=== PATIENT | female | born 1965 | race Caucasian/White ===

== ENCOUNTER 2016-08-01 02:21 | Emergency (ER) | payer BC ==
--- NOTE | ~2016-08-01 | ER ---
PATIENT'S NAME: MATILDA MCGRAW [facility] AGE: 50 Y [address] ROOM: [place] [address] LOCATION: ED ADMIT DATE: 08/01/2016 ER/Outpatient Report DISCHARGE DATE: 08/01/2016 FAMILY PHYSICIAN: German Edmonds MD ATTENDING PHYSICIAN: Doreen Carter ADDENDUM: I saw Ms. Mcgraw in conjunction with Dr. Carter. I received the hand off at 0600 hours. The patient was evidently in SVT and was cardioverted. She had up trending troponins after that, and the plan is to recheck a troponin at 0645 hours. The troponin continued to trend up. I discussed the case with Dr. Sweet and Dr. Edmonds. We obtained an echocardiogram in the emergency department which was appropriate. Dr. Edmonds and Dr. Sweet both concur that it is appropriate for discharge and close followup. The patient will go to her followup appointment at that time as previously scheduled on Wednesday with Dr. Sweet. She should return immediately as needed if recurrent symptoms. The patient was discharged in good condition. MD IHSAN KIRBY/myron /[id number] d: 08/02/16 1501 t: 08/19/16 0901, OUTPATIENT REPORT
--- NOTE | ~2016-08-01 | ER ---
PATIENT'S NAME: MATILDA GARCIA [facility] AGE: 50 Y [address] ROOM: [place] [address] LOCATION: [facility] ADMIT DATE: 08/01/2016 ER/Outpatient Report DISCHARGE DATE: FAMILY PHYSICIAN: eGrman Edmonds MD ATTENDING PHYSICIAN: Doreen Carter HISTORY OF PRESENT ILLNESS: A 50-year-old female, who presents today with chief complaint of rapid heart rate, which started approximately an hour and a half ago. The patient said it woke her up from sleep. She states she feels numbness and tingling all over, feels generalized weakness as well, and a rapid heart rate. She feels mildly short of breath. Denies any chest pain. No nausea or vomiting. No other complaints at this time. She says she has had something like this before, but it has never been recorded, like given her multiple Holter monitoring that she is always able to vasovagal herself out of it. PAST MEDICAL HISTORY: Includes SVT. 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 The patient has a history of hypotension at baseline. She states she is normally systolic 80s/30s. PAST SURGICAL HISTORY: Includes cholecystectomy, tonsillectomy, and bone marrow biopsy. SOCIAL HISTORY: She does not smoke, drink, or use any drugs. MEDICATIONS: Please see med list. ALLERGIES: ANCEF. ROS: Reviewed by me and negative with the exception of those discussed in HPI. PHYSICAL EXAMINATION: VITAL SIGNS: She is 65.7 kilos, blood pressure is 111/54, heart rate is 220 at this time, respiratory rate 34, temperature is 98.7, saturating 95% on room air. GCS is 15. GENERAL: The patient looks uncomfortable. She is hyperventilating at this time. She is mildly pale as well. She is able to speak in full sentences, but she has her eyes closed and clearly looks uncomfortable. She is alert and oriented x4. Her GCS is 15. CHEST: Normal to inspection. She has normal breath sounds. She has no PATIENT'S NAME: MATILDA GARCIA [facility] AGE: 50 Y [address] ROOM: [place] [address] LOCATION: [facility] ADMIT DATE: 08/01/2016 ER/Outpatient Report DISCHARGE DATE: FAMILY PHYSICIAN: German Edmonds MD ATTENDING PHYSICIAN: Doreen Carter tenderness in her chest. Heart rate, she is very tacky. She is 220 on the monitor at this time. She has good cap refill. Blood pressure 111/54. She feels warm and well perfused. ABDOMEN: Soft, nontender, nondistended. No guarding, or rebound or tenderness. EXTREMITIES: She has no pedal edema. No calf tenderness. SKIN: She is intact. The patient was able to walk into the ER without any difficulty. EMERGENCY ROOM COURSE: The patient was initially hooked up to the monitor. Pads were placed. We gave her 6 mg of adenosine rapid IV push and then her heart rate went up to 225 as high as 230. Her blood pressure dropped from systolic 110s to 80s. She started complaining that she really did not feel good, so we now considered this sort of unstable SVT. We gave her etomidate 10 mg IV, and then we did some synchronized cardioversion at 100 joules. There was actually no change in the heart rate when we did this. About 30 seconds after we did this, the patient vomited once while sedated and then she converted back to sinus rhythm. Heart rate at this time is 102 beats per minute. There was a P wave. She was turned to the right side, suctioned. Blood pressure right now is 136/69. Fluids infusing. The patient was observed. She then became awake and alert. She stated she felt better. Did not complain of any chest pain. No chest pressure. She has no shortness of breath. We checked some blood work at this time. So, we repeated the EKG and it is now sinus rhythm without any ectopy. There is no ST elevation or depression. WBC is 8.2, H and H is 10/29.7, MCV is 122, MCH is 41.2, platelets are 219. She has no bandemia. CMS shows a sodium of 141, potassium 3.1, chloride 105, CO2 21, anion gap 18.1, glucose 133, BUN 19, creatinine 1, bilirubin 2.5 elevated. The patient says that is pretty normal for her, though with her history. Alkaline phosphatase is 88, AST 21, ALT 42, GFR 58. Magnesium is 1.8. CPK 93, CK-MB is 1.4. Troponin is less than 0.04. I then consulted Dr. Sweet who is our signals analyst on-call, and told him about the events. He stated that we will recheck the troponin and make sure that is not increasing, but if she is pain- free, her symptoms have resolved and she is no longer in SVT, she could be sent home and followed up with his office at 11:30 a.m. on August 03, 2016. Discussed this with the patient. She is agreeable. She is resting comfortably in bed now, laughing with her . Denies any complaints at this time. We did another set of troponins at 04:38, which is 2 hours after the first one was drawn. CPK is 83, CK-MB is 1.5. Troponin is now 0.118. I called Dr. Sweet again. He states that is likely from the cardioversion and just being in SVT. Yes, that we would repeat another troponin in 2 hours. In fact, level is higher than 0.118 and she will be admitted for further workup, observation, and inpatient cardiology consult. If that number trends down, then she can still be discharged home and follow up with Dr. Sweet on August 03, 2016. I explained this all to the patient. She is happy with this plan. She PATIENT'S NAME: MATILDA GARCIA [facility] AGE: 50 Y [address] ROOM: [place] [address] LOCATION: [facility] ADMIT DATE: 08/01/2016 ER/Outpatient Report DISCHARGE DATE: FAMILY PHYSICIAN: German Edmonds MD ATTENDING PHYSICIAN: Doreen Carter does want to go home. She says she has no complaints right now. She feels much better than when she gets in. No complaints. Critical care time was 45 minutes. This patient was signed out at change of shift to Dr. Coyne, pending her third set of troponins. IMPRESSION: Stable supraventricular tachycardia, cardioverted. MD HILARY AGUILA/modl /[id number] d: 08/01/16 0731 t: 08/03/16 0028, OUTPATIENT REPORT
--- NOTE | ~2016-08-01 | ECHO ---
Transthoracic Echocardiography Report (TTE) Demographics Patient Name MATILDA GARCIA Date of Study 08/01/2016 Patient Number [id number] Visit Number [id number] Date of 1965 Room Number G6304 Accession Number [id number] Gender Female Age 50 year(s) Referring Stanford Serrano MD Pattern Weaver Deanna Harden Physician CS Physician Interpreting Kee Julien MD Outsole Leveler Physician Supervising Ordering Physician /MEDARDO Nurse Stress Fibre Composite Technician Conclusions Contractility Score Summary Normal Left Ventricular contractility was noted. Summary The estimated left ventricular ejection fraction is 60-65%. Diastolic assessment reveals normal relaxation. Mild tricuspid regurgitation by color Doppler. Trivial posterior pericardial effusion. Procedure Type of Study TTE procedure:2D Echocardiogram. Procedure Date Date: 08/01/2016 Start: 08:48 AM Indications:Elevated Troponin. Appropriate Use Criteria: 9 Patient Status: STAT HR: 82 bpm BP: 107/54 mmHg M-Mode/2D Measurements LV Diastolic Dimension: 4.18 cm LV Systolic Dimension: 2.98 cm LV Septum Diastolic: 0.9 cm LV PW Diastolic: 0.9 cm AO Root Dimension: 2.4 cm Cardiac Output: 4.45 l/min AV Cusp Separation: 1.8 cm RV Diastolic Dimension: 2.74 cm EF Estimated: 50 % LVOT: 2 cm LVOT VTI: 17.3 cm LV Stroke volume: 54.32 ml TDI-S': 10 cm/s Doppler Measurements AV Peak Velocity: 1.5 m/s MV Peak E-Wave: 0.7 m/s AV Peak Gradient: 9 mmHg MV Peak A-Wave: 0.65 m/s AV Mean Gradient: 5 mmHg MV E/A Ratio: 1.08 LVOT Peak Velocity: 0.87 m/s MV P1/2t: 52 msec TR Velocity:2.4 m/s Estimated RAP:10 mmHg PV Peak Velocity: 1.1 m/s Estimated RVSP: 33 mmHg PV Peak Gradient: 4.84 mmHg E' Septal Velocity: 0.09 m/s Estimated PASP: 33.04 mmHg E' Lateral Velocity: 0.11 m/s A' Septal Velocity: 0.06 m/s MV E/E' Ratio: 7.8 Findings Left Ventricle Diastolic assessment reveals normal relaxation. Right Ventricle Normal right ventricle structure and function. Right Atrium Normal right atrial size. Mitral Valve Normal mitral valve structure and function. Aortic Valve There is trivial aortic regurgitation by color Doppler. Tricuspid Valve Mild tricuspid regurgitation by color Doppler. Pulmonic Valve Normal pulmonic valve structure and function. Pericardial Effusion Trivial posterior pericardial effusion. Pleural Effusion No evidence of pleural effusion. Contractility Score LV regional wall motion:(0-Non visualized 1-Normal 2-Hypokinesis 3-Akinesis 4-Dyskinesis 5-Aneurysm) Signature dtt: Wily Sweet (cardio) dtd: 08/01/16 0848 Physician Self Edit
[~2016-08-01 02:21] MED LIST: AUGMENTIN 875-1 EACH PO; BREO INH; FOLIC ACID PO; PAIN RELIEVER500 M1 PO; XARELTO20 MG PO; [UNRECOGNIZED DRUG - OTHER] IV
[2016-08-01 02:55] LABS: BASOPHIL % 0.5 %; EOSINOPHIL # 0.2 K/uL (0.0-0.5); EOSINOPHIL % 2.9 %; HEMATOCRIT 29.7 % (33.0-46.0); IMMATURE GRANULOCYTE % 0.1 %; LYMPHOCYTE # 3.8 K/uL (0.8-4.0); LYMPHOCYTE % 46.3 %; MCH 41.2 pg (27.0-34.0); MCHC 33.7 gm/dL (32.0-36.5); MCV 122.2 fl (83.0-98.0); MONOCYTE # 0.5 K/uL (0.0-1.0); MONOCYTE % 6.6 %; MPV 8.6 fl (9.4-12.4); NEUTROPHIL # (ANC) 3.6 K/uL (1.8-7.8); NEUTROPHIL % 43.6 %; NRBC % 0 /100WBC (0-0.00); PLATELET COUNT 219 K/uL (150-450); RBC 2.43 M/uL (3.50-5.50); RDW-CV 13.9 % (11.9-14.6); WBC 8.2 K/uL (4.0-11.0)
[2016-08-01 03:05] LABS: INR - (THERAPEUTIC) 0.97 (0.92-1.07); PROTIME 10.2 SECONDS (9.8-11.4); PTT 24 SECONDS (25-32)
[2016-08-01 03:13] LABS: ALBUMIN 4.1 gm/dL (3.5-5.0); ALK PHOS 88 IU/L (33-138); ALT 42 IU/L (12-78); ANION GAP 18.1 (10.0-19.0); AST 21 IU/L (10-40); BLOOD UREA NITROGEN 19 mg/dL (6-24); CALCIUM 8.9 mg/dL (8.5-10.5); CHLORIDE 105 mMol/L (96-110); CO2 21 mMol/L (22-32); CPK 93 IU/L (21-215); ESTIMATED GFR (MDRD EQUATION) 58; MAGNESIUM 1.8 mg/dL (1.8-2.6); POTASSIUM 3.1 mMol/L (3.7-5.1); SODIUM 141 mMol/L (135-145); TOTAL BILIRUBIN 2.5 mg/dL (0.0-1.5); TOTAL PROTEIN 7.3 g/dL (6.0-8.4)
== END 2016-08-01 10:08 | disposition disaster alternative care site (69) ==
LOC: GMED 02:21 → GPCU 08:02 → GMED 10:08
PROVIDERS: Emergency Medicine
DX: I47.1 Supraventricular tachycardia (principal); Z88.1 Allergy status to other antibiotic agents; Z79.01 Long term (current) use of anticoagulants; Z86.711 Personal history of pulmonary embolism; Z90.49 Acquired absence of other specified parts of digestive tract; Z90.89 Acquired absence of other organs
CPT/HCPCS: J0153; J2405; J7030

== ENCOUNTER → 2016-12-21 | Outpatient (CLI) | payer BC | LOC: GKIC 12-17 15:30 → GRAD 12-18 08:00 → GKIC 11:35 | DX: R51 Headache (principal); I67.82 Cerebral ischemia ==